=== PATIENT | female | born 1975 | race Caucasian/White ===

== ENCOUNTER 2016-06-03 19:30 | Emergency (ER) | payer OTHER ==
[~2016-06-03] VITALS: Ht 180.3 cm; Wt 90.1 kg
--- OUTSIDE RECORDS SUMMARY | 2016-06-03 19:37 | XMS REPORT | Referral Summary ---
Author Author [facility] Organization [facility] Address Unknown Phone Unavailable Care Team Providers Care Organization Development Consultant Name Role Phone No PCP, Pt States PCP [phone] Encounter VC Date(s): 02/03/16 - 02/04/16 [facility] [address] [place] [address] Discharge Diagnosis: Abscess of neck Discharge Disposition: 01-Home or Self Care Attending Physician: Dany Zimmer MD Admitting Physician: Dany Zimmer MD Vital Signs Most recent to 1 oldest [Reference Range]: Temperature Oral 36.8 degC [35.8-37.3 degC] (02/03/16 10:16 PM) Peripheral Pulse 56 bpm Rate [60-100 bpm] *LOW* (02/04/16 12:39 AM) Heart Rate Monitored 52 bpm [60-100 bpm] *LOW* (02/04/16 2:05 AM) Respiratory Rate 16 br/min [14-20 br/min] (02/04/16 2:05 AM) Blood Pressure 124/76 mmHg [90-140/60-90 mmHg] (02/04/16 1:36 AM) Mean Arterial 90 mmHg Pressure, Cuff (02/04/16 1:36 AM) SpO2 100 % (02/04/16 2:05 AM) Problem List Condition Effective Dates Status Health Status Informant Depression(Confirmed Resolved )1 gastro-esoph reflux Resolved with esophageal spasms(Confirmed) headaches - Resolved migraine(Confirmed)2 Obesity(Confirmed) Active patient Overweight(Confirmed Resolved ) 1depressive disorder, not elsewhere [id number] w/aura w/o mention intractable migraine Allergies, Adverse Reactions, Alerts No Known Medication Allergies Medications doxycycline hyclate 100 mg oral tablet 100 mg 1 tabs, Oral, BID, X 10 days, # 20 tabs, 0 Refill(s) Start Date: 02/04/16 Stop Date: 02/14/16 Status: Orderedmeloxicam 15 mg oral tablet 15 mg 1 tabs, Oral, Daily, # 30 tabs, 0 Refill(s), Pharmacy: [id number], 1 tabs Oral Daily Start Date: 04/10/15 Status: OrderedPercocet 5/325 oral tablet 1 tabs, Oral, q6hr, as needed for pain, # 12 tabs, 0 Refill(s) Start Date: 02/04/16 Status: Ordered Results No data available for this section Immunizations Vaccine Date Refusal Reason tetanus-diphth toxoids (Td) adult/adol 05/25/03 Procedures Procedure Date Related Diagnosis Body Site Hysterectomy 06/01/08 Gallbladder Social History Social History Type Response Smoking Status Current every day smoker; Type: Cigarettes; Tobacco use per day: Pack Assessment and Plan No data available for this section
[2016-06-03] MEDS ORDERED: KETOROLAC 60 MG/2 ML (TORADOL) VIAL IM ONE (20:05)
[2016-06-03] MEDS ORDERED: ORPHENADRINE 60 MG/2 ML (NORFLEX) AMP IM ONE (20:05)
[2016-06-03] MEDS ORDERED: TRM50T PO (20:15)
[2016-06-03] MEDS ORDERED: HYDR-3702 PO (21:28)
[2016-06-03] MEDS ORDERED: ED- HYDROcodone/ACETAMINOPHEN 5MG/325MG (NORCO) 6 TABLETS/BTL PO ONE (21:30)
[2016-06-03 21:50] VITALS: BP 108/57
--- NOTE | 2016-06-04 08:37 | Diagnostic Imaging Report ---
INDICATION: Back pain after fall. COMPARISON: 04/24/2014. TECHNIQUE: 3 views of the lumbar spine. FINDINGS: The lumbar spine is normal in alignment. No fracture. Intervertebral disc space heights are well-maintained. SI joints are normal. 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 Cholecystectomy clips. IMPRESSION: No acute fracture or traumatic malalignment in the lumbar spine Dictated by: Dictated on workstation # [id number]
== END 2016-06-03 21:43 | disposition home or self-care (01) ==
LOC: ED 19:33
DX: S39.012A Strain of muscle, fascia and tendon of lower back, initial encounter (principal); X50.0XXA Overexertion from strenuous movement or load, initial encounter
CPT/HCPCS: 72100; 96372; 99282; J1885; J2360; 99283